=== PATIENT | female | born 1955 | race Two or more races ===

== ENCOUNTER 2022-08-01 10:33 | Outpatient (CLI) | payer OTHER | END 2022-08-01 10:37 | disposition home or self-care (01) | LOC: SONOGRAMA 10:33 | PROVIDERS: ATTEND Pathology Anatomic Pathology & Clinical Pathology | DX: D44.0 Neoplasm of uncertain behavior of thyroid gland (principal); D34 Benign neoplasm of thyroid gland; E04.9 Nontoxic goiter, unspecified; E07.9 Disorder of thyroid, unspecified; E04.2 Nontoxic multinodular goiter ==

== ENCOUNTER 2023-03-10 10:24 | Outpatient (CLI) | payer OTHER | END 2023-03-10 10:30 | disposition home or self-care (01) | LOC: SONOGRAMA 10:24 | PROVIDERS: ATTEND Pathology Anatomic Pathology & Clinical Pathology | DX: D34 Benign neoplasm of thyroid gland (principal); E04.9 Nontoxic goiter, unspecified; E06.5 Other chronic thyroiditis ==